=== PATIENT | male | born 1960 | race Two or more races ===

== ENCOUNTER 2021-11-12 09:12 | Inpatient (IN) | payer OTHER ==
[~2021-11-12] VITALS: Ht 175.3 cm; Wt 81.6 kg
--- NOTE | 2021-11-12 09:33 | NUR ---
TO ER BED 6, SHANE FROM [facility] FOR BEING TESTED COVID +, AAOX3, BREATHING EVEN AND NON LABORED, TRACH, ROOM AIR, CONNECTED TO MONITOR, AWAITING MD FRY
--- NOTE | 2021-11-12 09:39 | NUR ---
CALLED NURSING SUP REGARDING PT BED
[2021-11-12] MEDS ORDERED: DOCU-141 PO (09:44)
[2021-11-12] MEDS ORDERED: MAGN400T26 PO (09:44)
[2021-11-12] MEDS ORDERED: HEPA100D33 SQ (09:44)
[2021-11-12] MEDS ORDERED: CHLO473M5 MM (09:44)
[2021-11-12] MEDS ORDERED: MAGN400O6 GT (09:44)
[2021-11-12] MEDS ORDERED: SENN-175 PO (09:44)
[2021-11-12] MEDS ORDERED: MINE133E RC (09:44)
[2021-11-12] MEDS ORDERED: IPRA4AER IH (09:44)
[2021-11-12] MEDS ORDERED: POTA20TA83 PO (09:44)
[2021-11-12] MEDS ORDERED: BISA10SU11 RC (09:44)
[2021-11-12] MEDS ORDERED: TRAM50TA2 PO (09:44)
[2021-11-12] MEDS ORDERED: PANT40TA49 PO (09:44)
--- NOTE | 2021-11-12 09:44 | NUR ---
TECH AT BEDSIDE FOR EKG
--- NOTE | 2021-11-12 09:52 | NUR ---
COVID SWAB DONE AND SENT TO LAB
[2021-11-12] MEDS ORDERED: MAGNESIUM HYDROXIDE 30 ML UDC GT PRN (10:00)
[2021-11-12] MEDS ORDERED: MAGNESIUM HYDROXIDE 30 ML UDC PO PRN (10:00)
[2021-11-12] MEDS ORDERED: Z GUARD REMEDY 4 OZ OINT TP PRN (10:00)
[2021-11-12] MEDS ORDERED: BISACODYL SUPP (10 MG) 10 MG/SUPP.RECT SUPP.RECT RC PRN (10:00)
[2021-11-12] MEDS: ENOXAPARIN SODIUM 40 MG/0.4 ML DISP.SYRIN SQ SCH (10:00)
[2021-11-12] MEDS ORDERED: ONDANSETRON HCL/PF 4 MG/2 ML VIAL IVP PRN (10:00)
[2021-11-12] MEDS ORDERED: MAG HYDROX/AL HYDROX/SIMETH 30 ML UDC PO PRN (10:00)
[2021-11-12] MEDS ORDERED: TRAMADOL HCL 50 MG TABLET PO PRN (10:00)
[2021-11-12] MEDS ORDERED: MINERAL OIL 133 ML (PYXIS) 1 EA ENEMA RC PRN (10:00)
[2021-11-12 10:24] LABS: BASOPHILS % (AUTO) 0.5 % (0.0-2.0); EOSINOPHILS % (AUTO) 0.8 % (0.0-6.0); HEMATOCRIT 35 % (39-51); HEMOGLOBIN 11.8 g/dL (13.5-17.5); LYMPHOCYTES # (AUTO) 1.8 K/uL (0.8-4.8); LYMPHOCYTES % (AUTO) 47.2 % (20.0-44.0); MEAN CORPUSCULAR HGB CONC 34 g/dl (31.0-36.0); MEAN CORPUSCULAR VOLUME 87 fL (80-96); MONOCYTES # (AUTO) 0.5 K/uL (0.1-1.30); MONOCYTES % (AUTO) 12.6 % (2.0-12.0); NEUTROPHILS # (AUTO) 1.5 K/uL (1.8-8.9); NEUTROPHILS % (AUTO) 38.9 % (43.0-81.0); PLATELET COUNT (AUTO) 260 K/uL (150-450); RED BLOOD CELL COUNT(AUTO) 4.01 MIL/uL (4.5-6.0); WHITE BLOOD COUNT (AUTO) 3.8 K/uL (4.3-11.0)
--- NOTE | 2021-11-12 10:33 | NUR ---
SPOKE TO JONATHAN FROM [facility]. SHE REQUESTED FOR COVID RESULTS TO BE FAXED TO [phone]
[2021-11-12 10:56] LABS: ALANINE AMINOTRANSFERASE 28 U/L (12-78); ALBUMIN 2.7 g/dL (3.4-5.0); ALKALINE PHOSPHATASE 167 U/L (46-116); ASPARTATE AMINOTRANSFERASE 18 U/L (15-37); BILIRUBIN,DIRECT 0.2 mg/dL (0.0-0.2); BILIRUBIN,TOTAL 0.4 mg/dL (0.2-1.0); CALCIUM, SERUM 8.8 mg/dL (8.5-10.1); CARBON DIOXIDE 30 mmol/L (21-32); CHLORIDE 101 mmol/L (98-107); CREATININE 0.8 mg/dL (0.6-1.3); GLUCOSE 119 mg/dL (74-106); POTASSIUM 3.5 mmol/L (3.5-5.1); SODIUM SERUM 135 mmol/L (136-145); TOTAL PROTEIN, SERUM 7.4 g/dL (6.4-8.2); UREA NITROGEN, BLOOD 15 mg/dL (7-18)
--- NOTE | 2021-11-12 11:18 | NUR ---
COVID+ PER LAB, DR SHIELDS
--- NOTE | 2021-11-12 11:20 | NUR ---
COVID RESULTS FAXED.
--- NOTE | 2021-11-12 11:21 | NUR ---
[employer] STAMP PAD FINISHER ([phone]), WILL CALL BACK FOR BED AVAILABILITY.
--- NOTE | 2021-11-12 11:43 | NUR ---
URINE SAMPLE COLLECTED AND SENT TO LAB
--- NOTE | 2021-11-12 12:00 | NUR ---
VERBAL AUTH. RECEIVED FROM [employer] DIRECTOR NURSES' REGISTRY.
[2021-11-12 12:17] LABS: BILIRUBIN,URINE NEGATIVE (NEGATIVE); COLOR,URINE YELLOW (YELLOW); LEUKOCYTE ESTERASE ,URINE NEGATIVE (NEGATIVE); NITRITE, URINE NEGATIVE (NEGATIVE); PROTEIN,URINE NEGATIVE (NEGATIVE); UGLUCOSE NEGATIVE (NEGATIVE)
[2021-11-12 12:30] LABS: BACTERIA,URINE Few /HPF (None Seen); MUCUS,URINE Few /LPF (None Seen); SQUAMOUS EPITHELIAL CELL,UR Few /HPF (None Seen); WBC,URINE 0-2 /HPF (0-3)
[2021-11-12] MEDS ORDERED: ENOXAPARIN SODIUM 40 MG/0.4 ML DISP.SYRIN SQ ONE (14:23)
--- NOTE | 2021-11-12 15:19 | NUR ---
GOT BED ROOM 107
--- NOTE | 2021-11-12 15:43 | NUR ---
PT REPORT GIVEN TO CHRISTIN JUAN.
[2021-11-12 16:00] VITALS: BP 134/76
--- NOTE | 2021-11-12 16:07 | NUR ---
PT TRANSFERRED TO 107 VIA [facility] ACLS PROTOCOL. WARM HANDOFF GIVEN TO CHRISTIN JUAN. BELONGINGS AT BEDSIDE W/ PATIENT.
[2021-11-12] MEDS: CHLORHEXIDINE GLUCONATE 15 ML UDC MM SCH (17:30)
--- NOTE | 2021-11-12 18:03 | NUR ---
RT Received pt in Room 107 on RA T-cap (Shiley 6 CUFFLESS). Pt awake and alert. Back up trach + Ambu bag at bedside. No SOB noted.
--- NOTE | 2021-11-12 19:27 | NUR ---
RN NOTES PT FOUND SEMI FOWLERS DISPLAYING NO S/S OF DISTRESS, PT ENDORSES NO PAIN AND BREATHING IS EVEN AND UNLABORED ON RA. R UA PICC IS PATIENT AND INTACT. SBAR AND REPORT GIVEN TO [employer] DEPARTMENT MANAGER, ALL QUESTIONS ANSWERED. SAFETY MEASURES IN PLACE, BED LOCKED AND IN LOWEST POSITION, SIDE RAILS UPX2, CALL LIGHT WITHIN REACH, PT INSTRUCTED TO CALL FOR ASSISTANCE.
--- NOTE | 2021-11-12 19:35 | NUR ---
MS RN OPENING NOTE RECEIVED PATIENT IN BED; AWAKE, ALERT AND ORIENTED X4. BREATHING IS EVEN AND NONLABORED. ON ROOM AIR; TOLERATING WELL. NOT IN ANY FORM OF RESPIRATORY DISTRESS. WITH RIGHT UPPER ARM PICC LINE; PATENT, INTACT AND SALINE LOCKED. ABLE TO MAKE NEEDS KNOWN. SAFETY MEASURES IMPLEMENTED: CALL LIGHT AND TABLE WITHIN EASY REACH, SIDE RAILS UP X2, BED IN LOWEST LOCKED POSITION. WILL CONTINUE TO MONITOR
[2021-11-12 20:00] VITALS: BP 131/74
[2021-11-12] MEDS: SENNOSIDES 8.6 MG TABLET PO SCH (21:43)
[2021-11-13 05:00] VITALS: BP 130/76
--- NOTE | 2021-11-13 07:05 | NUR ---
RN CLOSING NOTES PATIENT IS A/O X4, WITH STABLE VS. NOT IN ANY FORM OF RESPIRATORY DISTRESS. SAFETY MEASURES IN PLACE AT ALL TIMES. ENDORSED TO MORNING SHIFT FOR ZARA
--- NOTE | 2021-11-13 07:25 | NUR ---
RN OPEN NOTE RECEIVED PATIENT IN BED; AWAKE, ALERT AND ORIENTED X4. BREATHING IS EVEN AND NONLABORED. ON ROOM AIR TOLERATING WELL. NOT IN ANY FORM OF RESPIRATORY DISTRESS.PATIENT HAS RIGHT UPPER ARM PICC LINE; PATENT, INTACT AND SALINE LOCKED. SAFETY MEASURES IMPLEMENTED: CALL LIGHT AND TABLE WITHIN EASY REACH, SIDE RAILS UP BED, IN LOWEST POSITION , WILL CONTINUE TO MONITOR
[2021-11-13 07:30] LABS: BASOPHILS % (AUTO) 0.5 % (0.0-2.0); EOSINOPHILS % (AUTO) 2.7 % (0.0-6.0); HEMATOCRIT 36 % (39-51); HEMOGLOBIN 11.9 g/dL (13.5-17.5); LYMPHOCYTES # (AUTO) 3.1 K/uL (0.8-4.8); LYMPHOCYTES % (AUTO) 48.7 % (20.0-44.0); MEAN CORPUSCULAR HGB CONC 33 g/dl (31.0-36.0); MEAN CORPUSCULAR VOLUME 87 fL (80-96); MONOCYTES # (AUTO) 0.9 K/uL (0.1-1.30); MONOCYTES % (AUTO) 13.6 % (2.0-12.0); NEUTROPHILS # (AUTO) 2.2 K/uL (1.8-8.9); NEUTROPHILS % (AUTO) 34.5 % (43.0-81.0); PLATELET COUNT (AUTO) 261 K/uL (150-450); RED BLOOD CELL COUNT(AUTO) 4.11 MIL/uL (4.5-6.0); WHITE BLOOD COUNT (AUTO) 6.3 K/uL (4.3-11.0)
[2021-11-13 07:49] LABS: CALCIUM, SERUM 9.2 mg/dL (8.5-10.1); CREATININE 0.8 mg/dL (0.6-1.3); MAGNESIUM 1.9 mg/dL (1.8-2.4); PHOSPHORUS 4.1 mg/dL (2.5-4.9); POTASSIUM 3.9 mmol/L (3.5-5.1)
[2021-11-13] MEDS: DOCUSATE SODIUM 100 MG CAPSULE PO SCH (09:53)
[2021-11-13] MEDS: PANTOPRAZOLE 40 MG TABLET.DR PO SCH (09:53)
[2021-11-13] MEDS: MAGNESIUM OXIDE 400 MG TABLET PO SCH (09:54)
[2021-11-13] MEDS: CHLORHEXIDINE GLUCONATE 15 ML UDC MM SCH ×2 (09:55→17:05)
[2021-11-13] MEDS: POTASSIUM CHLORIDE 20 MEQ TAB.PRT.SR PO SCH (09:55)
[2021-11-13] MEDS: ENOXAPARIN SODIUM 40 MG/0.4 ML DISP.SYRIN SQ SCH (09:57)
[2021-11-13 13:00] VITALS: BP 110/60
--- NOTE | 2021-11-13 18:45 | NUR ---
RN CLOSING NOTE PATIENT IS ALERT , ORIENTED TIMES 4 , ON ROOM AIR , BREATHING NON LABORED , NO SIGHS OF DISTRESS, HAS RIGHT LEG IN BRACE DUE TO fX , CAN AMBULATE WITH WALKER , HAS PICC LINE OF THE ANDRÉS , AMBULATES TO THE RESTROOM .ALL MEDS WERE ADMINISTERD , ALL NEEDS WERE MET ,BED IS AT LOWEST POSITION, BED SIDE RAILS ARE UP , CALL LIGHT WITHIN REACH .
--- NOTE | 2021-11-13 19:20 | NUR ---
RN NOTE RECEIVED PT IN BED, ON SEMI LAKE'S, AO X 4, IN NO ACUTE DISTRESS AT THIS TIME, BREATHING EVEN AND UNLABORED, SATURATION AT 96% ON ROOM AIR, HR IS 106. TRACH IN PLACE, CAPPED. ANDRÉS PICC LINE PATENT AND FLUSHING WELL, NO S/S OF INFECTION OR INFILTRATION, SALINE LOCKED. GTUBE INTACT, CLAMPED. R LEG BRACE IN PLACE. SAFETY MEASURES IMPLEMENTED. PATIENT BED ALARM IS ON. HEAD OF BED ELEVATED. BED IS LOCKED, IN LOWEST POSITION AND SIDE RAILS UP. CALL LIGHT WITHIN REACH OF THE PATIENT. WILL CONTINUE TO MONITOR AND REASSESS FOR ANY CHANGES.
[2021-11-13 20:00] VITALS: BP 139/75
[2021-11-13] MEDS: SENNOSIDES 8.6 MG TABLET PO SCH (21:43)
[2021-11-13] MEDS: ACETAMINOPHEN 325 MG TABLET PO PRN (21:43)
[2021-11-14] MEDS ORDERED: VANCOMYCIN 1.25 GM in IV D5W 250 ML IV ONE (01:00)
[2021-11-14] MEDS ORDERED: VANCOMYCIN 1 GM VIAL ONE (01:27)
[2021-11-14] MEDS: ACETAMINOPHEN 325 MG TABLET PO PRN (03:43)
[2021-11-14 04:00] VITALS: BP 111/61
--- NOTE | 2021-11-14 07:00 | NUR ---
MS RN OPENING NOTES PATIENT LAYING IN BED, A/O X 4, ABLE TO MAKE NEEDS KNOWN, TOLERATING WELL ON ROOM AIR WITH NO S/S RESPIRATORY DISTRESS. NO COMPLAINTS OF PAIN OR DISCOMFORT AT THIS TIME. TRACH IN PLACE, CAPPED. ANDRÉS PICC LINE CLEAN, INTACT, AND FLUSHING WELL. G-TUBE INTACT AND CLAMPED. R LEG BRACE IN PLACE. SAFETY MEASURES IN PLACE: BED IN LOWEST LOCKED POSITION, SIDE RAILS UP X 2, CALL LIGHT WITHIN REACH. WILL CONTINUE TO MONITOR.
[2021-11-14] MEDS ORDERED: VANCOMYCIN 0.75 GM in IV D5W 250 ML IV SCH (08:00)
[2021-11-14 08:04] LABS: BASOPHILS % (AUTO) 0.2 % (0.0-2.0); EOSINOPHILS % (AUTO) 0.2 % (0.0-6.0); HEMATOCRIT 36 % (39-51); HEMOGLOBIN 12.2 g/dL (13.5-17.5); LYMPHOCYTES # (AUTO) 0.7 K/uL (0.8-4.8); LYMPHOCYTES % (AUTO) 8.6 % (20.0-44.0); MEAN CORPUSCULAR HGB CONC 34 g/dl (31.0-36.0); MEAN CORPUSCULAR VOLUME 87 fL (80-96); MONOCYTES # (AUTO) 0.4 K/uL (0.1-1.30); NEUTROPHILS # (AUTO) 6.6 K/uL (1.8-8.9); PLATELET COUNT (AUTO) 235 K/uL (150-450); WHITE BLOOD COUNT (AUTO) 7.6 K/uL (4.3-11.0)
[2021-11-14 08:42] LABS: CALCIUM, SERUM 9.1 mg/dL (8.5-10.1); CREATININE 0.8 mg/dL (0.6-1.3); POTASSIUM 3.5 mmol/L (3.5-5.1)
[2021-11-14] MEDS: PANTOPRAZOLE 40 MG TABLET.DR PO SCH (09:20)
[2021-11-14] MEDS: POTASSIUM CHLORIDE 20 MEQ TAB.PRT.SR PO SCH (09:20)
[2021-11-14] MEDS: MAGNESIUM OXIDE 400 MG TABLET PO SCH (09:21)
[2021-11-14] MEDS: DOCUSATE SODIUM 100 MG CAPSULE PO SCH (09:21)
[2021-11-14] MEDS: CHLORHEXIDINE GLUCONATE 15 ML UDC MM SCH ×2 (09:21→17:33)
[2021-11-14] MEDS: ENOXAPARIN SODIUM 40 MG/0.4 ML DISP.SYRIN SQ SCH (09:22)
[2021-11-14] MEDS: CEFTRIAXONE 1 G in IV D5W 50 ML IV SCH (13:42)
--- NOTE | 2021-11-14 19:30 | NUR ---
MS RN OPENING NOTE RECEIVED PATIENT IN BED, A/O X 4, ABLE TO MAKE NEEDS KNOWN. CURRENTLY ON ROOM AIR WITH NO S/SX OF RESPIRATORY DISTRESS NOTED AT THIS TIME. NO COMPLAINTS OF PAIN OR DISCOMFORT. TRACH IN PLACE, CAPPED. ANDRÉS PICC LINE NOTED, CLEAN, INTACT, AND FLUSHING WELL. G-TUBE INTACT AND CLAMPED. R LEG BRACE NOTED. ALL SAFETY SAFETY MEASURES IN PLACE: BED IN LOWEST LOCKED POSITION, SIDE RAILS UP X 2, CALL LIGHT WITHIN REACH. WILL CONTINUE TO MONITOR.
[2021-11-14 21:00] VITALS: BP 107/67
[2021-11-14] MEDS: SENNOSIDES 8.6 MG TABLET PO SCH (21:28)
[2021-11-15 05:00] VITALS: BP 111/98
--- NOTE | 2021-11-15 06:48 | NUR ---
MS RN CLOSING NOTE NO SIGNIFICANT CHANGE THROUGHOUT THE SHIFT. ALL DUE MEDS GIVEN. VS STABLE. SAFETY MEASURES IN PLACE. CALL LIGHT WITHIN REACH. WILL ENDORSE TO AM SHIFT NURSE FOR ZARA.
[2021-11-15 08:00] VITALS: BP 125/69
[2021-11-15 08:27] LABS: CALCIUM, SERUM 9.1 mg/dL (8.5-10.1); CREATININE 0.8 mg/dL (0.6-1.3)
[2021-11-15] MEDS: POTASSIUM CHLORIDE 20 MEQ TAB.PRT.SR PO SCH (09:52)
[2021-11-15] MEDS: CHLORHEXIDINE GLUCONATE 15 ML UDC MM SCH ×2 (09:52→17:10)
[2021-11-15] MEDS: MAGNESIUM OXIDE 400 MG TABLET PO SCH (09:53)
[2021-11-15] MEDS: DOCUSATE SODIUM 100 MG CAPSULE PO SCH (09:53)
[2021-11-15] MEDS: PANTOPRAZOLE 40 MG TABLET.DR PO SCH (09:53)
[2021-11-15] MEDS: ENOXAPARIN SODIUM 40 MG/0.4 ML DISP.SYRIN SQ SCH (10:49)
[2021-11-15] MEDS: CEFTRIAXONE 1 G in IV D5W 50 ML IV SCH (12:46)
[2021-11-15 16:00] VITALS: BP 127/61
--- NOTE | 2021-11-15 19:34 | NUR ---
MS RN NOTES: PT SITING UP ON THE CHAIR, ALERT AND ORIENTED X 4,TRACH IN PLACE AND CAPPED, NO COUGHING OR sob NOTED. LEFT UPPER ARM PICC LINE PATENT AND INTACT, ALL DUE MEDS ARE GIVEN ORDER, RIGHT LEG BRACE ARE ON, ABLE TO AMBULATE WITH WALKER, WAS EVALUATED BY PT AND OT. ALL NEEDS MET
--- NOTE | 2021-11-15 19:40 | NUR ---
MS RN OPENING NOTE RECEIVED PATIENT SITTING ON THE BEDSIDE CHAIR, A/O X 4, ABLE TO MAKE NEEDS KNOWN. CURRENTLY ON ROOM AIR WITH NO S/SX OF RESPIRATORY DISTRESS NOTED AT THIS TIME. NO COMPLAINTS OF PAIN OR DISCOMFORT. TRACH IN PLACE, CAPPED. MEDARDO PICC LINE NOTED, CLEAN, INTACT, AND FLUSHING WELL. G-TUBE INTACT AND CLAMPED. R LEG BRACE NOTED. ALL SAFETY SAFETY MEASURES IN PLACE, MAINTAINED ISOLATION PRECAUTION, BED IN LOWEST LOCKED POSITION, SIDE RAILS UP X 2, CALL LIGHT WITHIN REACH. WILL CONTINUE TO MONITOR THROUGHOUT THE SHIFT.
[2021-11-15] MEDS: SENNOSIDES 8.6 MG TABLET PO SCH (21:28)
[2021-11-16] VITALS: BP 128/64
--- NOTE | 2021-11-16 06:37 | NUR ---
MS RN OPENING NOTE NO SIGNIFICANT CHANGES THROUGHOUT THE SHIFT. PATIENT RESTING ON BED, A/O X 4, ABLE TO MAKE NEEDS KNOWN. ON ROOM AIR WITH NO S/SX OF RESPIRATORY DISTRESS NOTED AT THIS TIME. NO COMPLAINTS OF PAIN OR DISCOMFORT. TRACH IN PLACE, CAPPED. MEDARDO PICC LINE NOTED, CLEAN, INTACT, AND FLUSHING WELL. G-TUBE INTACT AND CLAMPED. R LEG BRACE NOTED. ALL SAFETY SAFETY MEASURES IN PLACE, MAINTAINED ISOLATION PRECAUTION, ALL DUE MEDS GIVEN, KEPT DRY AND CLEAN, BED IN LOWEST LOCKED POSITION, SIDE RAILS UP X 2, CALL LIGHT WITHIN REACH. WILL ENDORSE TO AM SHIFT NURSE. Addendum: 11/16/21 at 0645 by YASMANY DAVIS RN MS RN CLOSING NOTES: NO SIGNIFICANT CHANGES THROUGHOUT THE SHIFT. PATIENT RESTING ON BED, A/O X 4, ABLE TO MAKE NEEDS KNOWN. ON ROOM AIR WITH NO S/SX OF RESPIRATORY DISTRESS NOTED AT THIS TIME. NO COMPLAINTS OF PAIN OR DISCOMFORT. TRACH IN PLACE, CAPPED. MEDARDO PICC LINE NOTED, CLEAN, INTACT, AND FLUSHING WELL. G-TUBE INTACT AND CLAMPED. R LEG BRACE NOTED. ALL SAFETY SAFETY MEASURES IN PLACE, MAINTAINED ISOLATION PRECAUTION, ALL DUE MEDS GIVEN, KEPT DRY AND CLEAN, BED IN LOWEST LOCKED POSITION, SIDE RAILS UP X 2, CALL LIGHT WITHIN REACH. WILL ENDORSE TO AM SHIFT NURSE.
--- NOTE | 2021-11-16 06:46 | NUR ---
MS RN CLOSING NOTES: NO SIGNIFICANT CHANGES THROUGHOUT THE SHIFT. PATIENT RESTING ON BED, A/O X 4, ABLE TO MAKE NEEDS KNOWN. ON ROOM AIR WITH NO S/SX OF RESPIRATORY DISTRESS NOTED AT THIS TIME. NO COMPLAINTS OF PAIN OR DISCOMFORT. TRACH IN PLACE, CAPPED. MEDARDO PICC LINE NOTED, CLEAN, INTACT, AND FLUSHING WELL. G-TUBE INTACT AND CLAMPED. R LEG BRACE NOTED. ALL SAFETY SAFETY MEASURES IN PLACE, MAINTAINED ISOLATION PRECAUTION, ALL DUE MEDS GIVEN, KEPT DRY AND CLEAN, BED IN LOWEST LOCKED POSITION, SIDE RAILS UP X 2, CALL LIGHT WITHIN REACH. WILL ENDORSE TO AM SHIFT NURSE.
[2021-11-16 07:33] LABS: BASOPHILS % (AUTO) 0.4 % (0.0-2.0); EOSINOPHILS % (AUTO) 2.6 % (0.0-6.0); HEMATOCRIT 34 % (39-51); HEMOGLOBIN 11.4 g/dL (13.5-17.5); LYMPHOCYTES # (AUTO) 3.3 K/uL (0.8-4.8); LYMPHOCYTES % (AUTO) 46.7 % (20.0-44.0); MEAN CORPUSCULAR HGB CONC 34 g/dl (31.0-36.0); MEAN CORPUSCULAR VOLUME 87 fL (80-96); MONOCYTES # (AUTO) 0.8 K/uL (0.1-1.30); MONOCYTES % (AUTO) 11.7 % (2.0-12.0); NEUTROPHILS # (AUTO) 2.8 K/uL (1.8-8.9); NEUTROPHILS % (AUTO) 38.6 % (43.0-81.0); PLATELET COUNT (AUTO) 221 K/uL (150-450); RED BLOOD CELL COUNT(AUTO) 3.88 MIL/uL (4.5-6.0); WHITE BLOOD COUNT (AUTO) 7.2 K/uL (4.3-11.0)
--- NOTE | 2021-11-16 07:33 | NUR ---
MS RN OPENING NOTE RECEIVED PATIENT IN BED, A/O X 4, ABLE TO VERBALIZED HIS NEEDS, PATIENT IS ON ON ROOM AIR WITH NO S/SX OF RESPIRATORY DISTRESS NOTED AT THIS TIME. NO COMPLAINTS OF PAIN OR DISCOMFORT. TRACH IN PLACE, CAPPED. ANDRÉS PICC LINE INTACT , CLEAN, AND FLUSHING WELL. G-TUBE INTACT AND CLAMPED. R LEG BRACE . ALL SAFETY SAFETY MEASURES IN PLACE: BED IN LOWEST LOCKED POSITION, SIDE RAILS UP X 2, CALL LIGHT WITHIN REACH. WILL CONTINUE TO MONITOR.
[2021-11-16 08:00] VITALS: BP 123/78
[2021-11-16] MEDS: DOCUSATE SODIUM 100 MG CAPSULE PO SCH (08:32)
[2021-11-16] MEDS: POTASSIUM CHLORIDE 20 MEQ TAB.PRT.SR PO SCH (08:32)
[2021-11-16] MEDS: CHLORHEXIDINE GLUCONATE 15 ML UDC MM SCH ×2 (08:32→16:03)
[2021-11-16] MEDS: MAGNESIUM OXIDE 400 MG TABLET PO SCH (08:33)
[2021-11-16] MEDS: PANTOPRAZOLE 40 MG TABLET.DR PO SCH (08:33)
[2021-11-16 10:18] LABS: CALCIUM, SERUM 9.5 mg/dL (8.5-10.1); CREATININE 0.8 mg/dL (0.6-1.3); POTASSIUM 4.3 mmol/L (3.5-5.1)
[2021-11-16] MEDS: ENOXAPARIN SODIUM 40 MG/0.4 ML DISP.SYRIN SQ SCH (10:36)
[2021-11-16] MEDS: CEFTRIAXONE 1 G in IV D5W 50 ML IV SCH (13:20)
[2021-11-16 16:48] VITALS: BP 107/72
--- NOTE | 2021-11-16 18:23 | NUR ---
RN CLOSING NOTE PATIENT IS ALERT , ORIENTED TIMES 4 , ON ROOM AIR , BREATHING NON LABORED , NO SIGHS OF DISTRESS, HAS RIGHT LEG IN BRACE DUE TO fX , CAN AMBULATE WITH WALKER , HAS PICC LINE OF THE ANDRÉS , AMBULATES TO THE RESTROOM .ALL MEDS WERE ADMINISTERED , PATIENT IS READY FOR DISCHARGE IN AM .ALL NEEDS WERE MET ,BED IS AT LOWEST POSITION, BED SIDE RAILS ARE UP , CALL LIGHT WITHIN REACH .
[2021-11-16 20:00] VITALS: BP 134/71
[2021-11-16] MEDS: SENNOSIDES 8.6 MG TABLET PO SCH (21:03)
--- NOTE | 2021-11-16 21:44 | NUR ---
MS RN OPENING NOTE PT RECEIVED IN BED, AWAKE, WATCHING TV, A&O X4, CALM, COOPERATIVE. PT NOTED TO HAVE TRACHEOSTOMY, DRESSING IS C/D/I. PT ON RA WITH CURRENT O2SAT OF 96%; NO S/S OF RESP DISTRESS, NO SOB, NON-LABORED BREATHING; PT NOTED TO HAVE PRODUCTIVE COUGH, PT ABLE TO SPIT OUT PHLEGM. VSS, WILL CONTINUE TO MONITOR NEEDED. NOTED TO HAVE GT THAT'S CLAMPED, GT DRESSING IS C/D/I. MEDARDO PICC LINE INTACT AND PATENT, FLUSHES EASILY WITH NO RESISTANCE; CURRENTLY HAS NO FLUIDS/MEDS RUNNING THROUGH IT. PT NOTED TO HAVE BRACE ON RIGHT LEG D/T FRACTURE BUT IS ABLE TO AMBULATE WITH WALKER. BED IN LOWEST POSITION, CALL LIGHT WITHIN REACH, SIDE RAILS UP X2. WILL CONTINUE TO MONITOR THROUGHOUT THE NIGHT.
[2021-11-17 04:00] VITALS: BP 134/75
--- NOTE | 2021-11-17 06:27 | NUR ---
MS RN CLOSING NOTE PT REMAINS IN BED, ASLEEP BUT EASILY AROUSABLE, A&O X4; SLEPT WELL THROUGHOUT THE NIGHT, CALM, COOPERATIVE. ON RA, O2SAT RANGED FROM 95%-96% DURING THE NIGHT WITH NO S/S OF RESP DISTRESS, NO SOB, NON-LABORED AND EQUAL BREATHING; NOTED TO HAVE PRODUCTIVE COUGH. MEDARDO PICC LINE INTACT AND PATENT, FLUSHES EASILY WITH NO RESISTANCE, NO MEDS/FLUIDS RUNNING THROUGH. RIGHT LEG BRACE INTACT, PT ABLE TO AMBULATE WITH WALKER. BED IN LOWEST POSITION, CALL LIGHT WITHIN REACH, SIDE RAILS UP X2. WILL ENDORSE TO DAYSHIFT NURSE TO CONTINUE CARE .
--- NOTE | 2021-11-17 07:36 | NUR ---
RN NOTE PT RECEIVED AWAKE RESTING IN BED, IN ROOM AIR. NOT IN DISTRESS. COVID PREC FOLLOWED. MEDARDO PICC IN PLACE AND PATENT, WITH NO FLUIDS RUNNING. PT HAS R LEG BRACE, ABLE TO AMBULATE WITH WALKER. NO COMPLAINTS OF PAIN. SAFETY MEASURES FOLLOWED. WILL CONTINUE TO MONITOR.
[2021-11-17] MEDS: CHLORHEXIDINE GLUCONATE 15 ML UDC MM SCH ×2 (09:37→16:51)
[2021-11-17] MEDS: DOCUSATE SODIUM 100 MG CAPSULE PO SCH (09:37)
[2021-11-17] MEDS: PANTOPRAZOLE 40 MG TABLET.DR PO SCH (09:37)
[2021-11-17] MEDS: POTASSIUM CHLORIDE 20 MEQ TAB.PRT.SR PO SCH (09:37)
[2021-11-17] MEDS: ENOXAPARIN SODIUM 40 MG/0.4 ML DISP.SYRIN SQ SCH (09:37)
[2021-11-17] MEDS: MAGNESIUM OXIDE 400 MG TABLET PO SCH (09:38)
[2021-11-17 12:00] VITALS: BP 134/75
[2021-11-17] MEDS: CEFTRIAXONE 1 G in IV D5W 50 ML IV SCH (12:13)
--- NOTE | 2021-11-17 17:52 | NUR ---
RN NOTE PT RESTING IN BED, IN ROOM AIR. NOT IN DISTRESS. COVID PREC FOLLOWED. MEDARDO PICC IN PLACE AND PATENT, WITH NO FLUIDS RUNNING. PT HAS R LEG BRACE, ABLE TO AMBULATE WITH WALKER. NO COMPLAINTS OF PAIN. SAFETY MEASURES FOLLOWED. AM/PM CARE RENDERED. DUE MEDICATIONS TAKE. WILL CONTINUE TO MONITOR.
[2021-11-17 20:00] VITALS: BP 111/57
[2021-11-17] MEDS: SENNOSIDES 8.6 MG TABLET PO SCH (21:27)
[2021-11-18 04:00] VITALS: BP 144/69
--- NOTE | 2021-11-18 06:42 | NUR ---
MS RN CLOSING NOTE PT REMAINS IN BED, ASLEEP BUT EASILY AROUSABLE, A&O X4; SLEPT WELL THROUGHOUT THE NIGHT, CALM, COOPERATIVE. ON RA, O2SAT RANGED FROM 95%-96% DURING THE NIGHT WITH NO S/S OF RESP DISTRESS, NO SOB, NON-LABORED AND EQUAL BREATHING; NOTED TO HAVE PRODUCTIVE COUGH. MEDARDO PICC LINE INTACT AND PATENT. RIGHT LEG BRACE INTACT, PT ABLE TO AMBULATE WITH WALKER. BED IN LOWEST POSITION, CALL LIGHT WITHIN REACH, SIDE RAILS UP X2. WILL ENDORSE TO MORNING NURSE TO CONTINUE CARE .VSS
--- NOTE | 2021-11-18 07:17 | NUR ---
RN NOTE PT RECEIVED ASLEEP IN BED, IN ROOM AIR. NOT IN DISTRESS. COVID PREC FOLLOWED. MEDARDO PICC IN PLACE AND PATENT, WITH NO FLUIDS RUNNING. PT HAS R LEG BRACE, ABLE TO AMBULATE WITH WALKER. NO COMPLAINTS OF PAIN. SAFETY MEASURES FOLLOWED. WILL CONTINUE TO MONITOR.
[2021-11-18] MEDS: POTASSIUM CHLORIDE 20 MEQ TAB.PRT.SR PO SCH (09:14)
[2021-11-18] MEDS: PANTOPRAZOLE 40 MG TABLET.DR PO SCH (09:14)
[2021-11-18] MEDS: DOCUSATE SODIUM 100 MG CAPSULE PO SCH (09:14)
[2021-11-18] MEDS: MAGNESIUM OXIDE 400 MG TABLET PO SCH (09:14)
[2021-11-18] MEDS: CHLORHEXIDINE GLUCONATE 15 ML UDC MM SCH (09:14)
[2021-11-18] MEDS: ENOXAPARIN SODIUM 40 MG/0.4 ML DISP.SYRIN SQ SCH (09:16)
[2021-11-18 12:00] VITALS: BP 144/69
[2021-11-18] MEDS: CEFTRIAXONE 1 G in IV D5W 50 ML IV SCH (13:15)
--- NOTE | 2021-11-18 16:33 | NUR ---
RN NOTE PT LEFT FACILITY VIA AMBULANCE WITH 2 PERSONNEL. PT IN GOOD CONDITION. V/S STABLE. SPOKE WITH CHRISTIN FLOWERS FOR REPORT AND ZARA. PT TO HAVE 2 MORE DOSES OF IV ABT. PICC LINE KEPT IN PLACE ON MEDARDO.
== END 2021-11-18 16:50 | DRG 137 ==
LOC: ER 09:35 → TRANSITION 12:49 → TELE1 15:25 → MEDSG1 22:11
PROVIDERS: ADMIT Internal Medicine
DX: U07.1 COVID-19 (principal); J96.10 Chronic respiratory failure, unspecified whether with hypoxia or hypercapnia; R78.81 Bacteremia; Z93.0 Tracheostomy status; R13.10 Dysphagia, unspecified; S32.9XXS Fracture of unspecified parts of lumbosacral spine and pelvis, sequela; V89.2XXS Person injured in unspecified motor-vehicle accident, traffic, sequela
CPT/HCPCS: 36415; 71045-TC; 80048-TC; 80076-TC; 81001; 83605-TC; 83735-TC; 83880; 84100-TC; 84484-TC; 85025-TC; 85378-TC; 85730-TC; 86140-TC; 87040-TC; 87081-TC; 87086-TC; 87186-TC; 93307-TC; 97116-TC; 97530-TC; 97535-TC; C9803; G0378; J0696; J1650; J3370; J7030; J7050; J7060